=== PATIENT | female | born 1945 | race Caucasian/White ===

== ENCOUNTER 2021-04-17 11:31 | Emergency (ER) | payer OTHER, MEDICARE, BC | END 2021-04-17 13:30 | disposition home or self-care (01) | LOC: MADERS 11:31 | DX: S93.601A Unspecified sprain of right foot, initial encounter (principal); M17.11 Unilateral primary osteoarthritis, right knee; I10 Essential (primary) hypertension; E66.9 Obesity, unspecified; W01.0XXA Fall on same level from slipping, tripping and stumbling without subsequent striking against object, initial encounter; Y92.009 Unspecified place in unspecified non-institutional (private) residence as the place of occurrence of the external cause ==